=== PATIENT | male | born 1940 | race Caucasian/White ===

== ENCOUNTER 2019-05-02 13:46 | Outpatient (CLI) | payer MEDICARE, OTHER ==
--- NOTE | 2019-05-02 15:12 | Mammography Report ---
Reason: LT BREAST TENDERNESS Procedure Date: 05/02/2019 Accession Number: [id number] / [id number] Procedure: TOM - Diagnostic Dig Bilat CPT Code: Final Report FULL RESULT: EXAM: Diagnostic Dig Bilat DATE: 05/02/2019 2:56 PM CLINICAL HISTORY: Diagnostic examination. Left breast tenderness. TECHNIQUE: (B) - Bilateral CC and MLO views were obtained. COMPARISON: None PARENCHYMAL PATTERN: (A) - The breast(s) demonstrate(s) scattered fibroglandular densities. FINDINGS: Mammographically this breast glandular tissue in the retroareolar regions left greater than right most consistent with typically benign gynecomastia. There are no suspicious masses, calcifications, or areas of distortion. IMPRESSION: Benign findings. BI-RADS category 2. RECOMMENDATION: (CLIN) - Clinical follow-up for symptoms is recommended. BI-RADS CATEGORY: (2) - Benign Findings. STANDARD QUALIFYING STATEMENTS: 1. This examination was not reviewed with the aid of Computer-Aided Detection (CAD). 2. A negative or benign imaging report should not preclude biopsy if clinically suspicious findings are present. 3. Dense breasts may obscure an underlying neoplasm. 4. This examination was reviewed without the aid of 3D breast imaging (tomosynthesis).
== END 2019-05-02 13:47 | disposition home or self-care (01) ==
LOC: DI 13:46
PROVIDERS: ATTEND Nurse Practitioner Family
DX: N62 Hypertrophy of breast (principal)
CPT/HCPCS: 77066

== ENCOUNTER 2020-04-02 10:57 | Outpatient (CLI) | payer OTHER | END 2020-04-02 10:58 | disposition E | LOC: EMS 10:57 | PROVIDERS: ATTEND Surgery ==